=== PATIENT | male | born 1960 | race Caucasian/White ===

== ENCOUNTER 2022-10-26 00:55 | Emergency (ER) | payer MEDICAID ==
[~2022-10-26] VITALS: Ht 165.1 cm; Wt 74.8 kg
[2022-10-26 01:00] VITALS: BP_SYST 161; BP_SYST 180; BP_DIAS 67; BP_DIAS 76
--- NOTE | 2022-10-26 01:00 | NUR ---
TO BED VIA WHEEL CHAIR
--- NOTE | 2022-10-26 01:10 | NUR ---
Patient taken to bed 11 with family.
--- NOTE | 2022-10-26 01:12 | NUR ---
Patient BIB by family from home. C/O gen weakness x 2 days. Patient's family reported, patient had generalized weakness for 2 days, difficulty to walk , Hx CVA (left side weakness, able to walk by himself after Dx CVA ), HTN, DM , Gall stone. Patient awake, alert, slow answer question, generalized weakness, shakiness.
[2022-10-26] MEDS ORDERED: ATOR20TA40 PO (02:45)
[2022-10-26] MEDS ORDERED: HYDR-1098 PO (02:45)
[2022-10-26] MEDS ORDERED: APIX5TAB PO (02:45)
[2022-10-26] MEDS ORDERED: PRIM250T70 PO (02:45)
--- NOTE | 2022-10-26 02:45 | NUR ---
Dr. Osorio examining patient.
[2022-10-26] MEDS ORDERED: LINA5TAB PO (02:47)
--- NOTE | 2022-10-26 02:49 | NUR ---
Med-rec reviewed.
[2022-10-26 02:57] LABS: BASOPHILS # (AUTO) 0.1 K/uL (0.00-0.22); BASOPHILS % (AUTO) 0.7 % (0.0-2.0); EOSINOPHILS # (AUTO) 0.2 K/uL (0-0.4); EOSINOPHILS % (AUTO) 2.1 % (0.0-4.0); HEMATOCRIT 40.4 % (36-52); HEMOGLOBIN 13.3 g/dL (12.0-18.0); LYMPHOCYTES # (AUTO) 1.1 K/uL (2.0-11.5); LYMPHOCYTES % (AUTO) 12.6 % (20.5-51.1); MEAN CORPUSCULAR HEMOGLOBIN 29 pg (27-31); MEAN CORPUSCULAR HGB CONC 33 g/dL (33-37); MEAN CORPUSCULAR VOLUME 87.8 fL (80-94); MONOCYTES # (AUTO) 1.1 K/uL (0.8-1.0); MONOCYTES % (AUTO) 12.2 % (1.7-9.3); NEUTROPHILS # (AUTO) 6.4 K/uL (1.8-7.7); NEUTROPHILS % (AUTO) 72.4 % (42.2-75.2); PLATELET COUNT (AUTO) 241 K/uL (140-450); RED BLOOD CELL COUNT(AUTO) 4.61 MIL/uL (4.20-6.10); RED CELL DISTRIBUTION WIDTH 15.8 % (11.6-13.7); WHITE BLOOD COUNT (AUTO) 8.9 K/uL (4.8-10.8)
[2022-10-26 03:15] LABS: ANION GAP 10.2 (8-16); CARBON DIOXIDE 30.3 mmol/L (21-32); POTASSIUM 4.5 mmol/L (3.5-5.1)
--- NOTE | 2022-10-26 03:22 | NUR ---
X-Ray at bedside.
[2022-10-26] MEDS ORDERED: LIDOCAINE/EPI 2% 1:100000 20 ML VIAL INJ ONE (04:45)
[2022-10-26 05:05] VITALS: BP 158/82
[2022-10-26] MEDS ORDERED: ACET-10509 PO (06:01)
--- NOTE | 2022-10-26 06:24 | NUR ---
Called his daugther (Cyndi [phone]), She will come to shredder picker ~ 2-3 hours.
--- NOTE | 2022-10-26 08:23 | NUR ---
Patient discharged with v/s stable. Written and verbal after care instructions given and explained. Patient alert, oriented and verbalized understanding of instructions. Wheel Chair Assisted with to car. All questions addressed prior to discharge. ID band removed. Patient advised to follow up with PMD. Rx of ACETAMINOPHEN given. Patient educated on indication of medication including possible reaction and side effects. Opportunity to ask questions provided and answered.
== END 2022-10-26 08:23 | disposition home or self-care (01) ==
LOC: MED 00:55
DX: M25.461 Effusion, right knee (principal); M25.561 Pain in right knee; R07.9 Chest pain, unspecified; R10.9 Unspecified abdominal pain; I25.2 Old myocardial infarction; E11.9 Type 2 diabetes mellitus without complications; I10 Essential (primary) hypertension; Z86.73 Personal history of transient ischemic attack (TIA), and cerebral infarction without residual deficits; Z79.899 Other long term (current) drug therapy; Z79.01 Long term (current) use of anticoagulants
CPT/HCPCS: 20610; 36415; 73562; 80048; 85025; 93005; 99285; J2001